=== PATIENT | female | born 1955 | race Hispanic/Latino ===

== ENCOUNTER 2020-08-06 14:55 | Inpatient (IN) | payer OTHER ==
[~2020-08-06] VITALS: Ht 157.5 cm; Wt 82.6 kg
[2020-08-06 15:25] LABS: APPEARANCE,URINE TURBID (CLEAR); BILIRUBIN,URINE SMALL (NEGATIVE); COLOR,URINE BROWN (YELLOW); GLUCOSE, URINE (UA) 100 mg/dL (NEGATIVE); KETONES,URINE 5 mg/dL (NEGATIVE); LEUKOCYTE ESTERASE ,URINE MODERATE (NEGATIVE); NITRATE,URINE POSITIVE (NEGATIVE); OCCULT BLOOD,URINE SMALL (NEGATIVE); PROTEIN,URINE >=300 mg/dL (NEGATIVE)
[2020-08-06 15:27] LABS: BACTERIA,URINE Moderate /HPF (None Seen); RBC,URINE None Seen /HPF (0-1); WBC,URINE Full Field /HPF (0-1)
[2020-08-06 15:28] LABS: SQUAMOUS EPITHELIAL CELL,UR 0-2 /HPF (0-2)
[2020-08-06] MEDS ORDERED: ONDANSETRON 4MG INJ ONE (16:35)
[2020-08-06] MEDS ORDERED: CEFTRIAXONE 1G VIAL ONE (16:35)
[2020-08-06] MEDS ORDERED: MORPHINE 2 MG SYG ONE (16:36)
[2020-08-06] MEDS ORDERED: ACETAMINOPHEN 325 MG TAB ONE (16:36)
[2020-08-06] MEDS ORDERED: 0.9%NACL 1000ML 1,000 ML IV ONE (16:36)
[2020-08-06 16:42] LABS: BASOPHILS % (AUTO) 0.6 % (0.0-5.0); EOSINOPHILS % (AUTO) 0.7 % (0.0-8.0); HEMATOCRIT 37.6 % (36-48); LYMPHOCYTES % (AUTO) 9.7 % (21.0-51.0); MEAN CORPUSCULAR HGB CONC 31.6 g/dL (32.0-36.0); MEAN CORPUSCULAR VOLUME 75.8 fL (79-99); NEUTROPHILS % (AUTO) 84.7 % (40.0-77.0); PLATELET COUNT (AUTO) 215 K/uL (130-400); RED BLOOD CELL COUNT(AUTO) 4.96 MIL/uL (4.00-5.50); RED CELL DISTRIBUTION WIDTH 16.5 % (11.0-15.5); WHITE BLOOD COUNT (AUTO) 8.7 K/uL (4.8-10.8)
[2020-08-06 16:58] LABS: PROTHROMBIN TIME 10.9 SEC (9.6-11.6)
[2020-08-06 16:59] LABS: PARTIAL THROMBOPLASTIN TIME 28.5 SEC (26.3-35.5)
[2020-08-06 17:10] LABS: ALBUMIN 3.4 g/dL (3.5-5.0); BILIRUBIN,TOTAL 0.9 mg/dL (0.2-1.0); POTASSIUM 4.7 mmol/L (3.5-5.1); TOTAL PROTEIN, SERUM 8.6 g/dL (6.0-8.3)
[2020-08-06] MEDS ORDERED: ONDANSETRON 4MG INJ IV PRN (23:30)
[2020-08-06] MEDS: 0.9%NACL 1000ML 1,000 ML IV SCH (23:30)
[2020-08-06] MEDS ORDERED: ACETAMINOPHEN 325 MG TAB PO PRN (23:30)
[2020-08-06] MEDS ORDERED: NITROGLYCERIN 0.4 MG SL TAB SL PRN (23:30)
[2020-08-07] MEDS ORDERED: ACETAMINOPHEN 325 MG TAB ONE (01:34)
[2020-08-07 05:00] VITALS: BP 143/71
[2020-08-07 05:30] LABS: BASOPHILS % (AUTO) 0.4 % (0.0-5.0); EOSINOPHILS % (AUTO) 2.4 % (0.0-8.0); HEMATOCRIT 31.7 % (36-48); LYMPHOCYTES % (AUTO) 17.5 % (21.0-51.0); MEAN CORPUSCULAR HEMOGLOBIN 23.3 pg (27.0-33.0); MEAN CORPUSCULAR HGB CONC 30.6 g/dL (32.0-36.0); MONOCYTES % (AUTO) 6.3 % (3.0-13.0); NEUTROPHILS % (AUTO) 73.1 % (40.0-77.0); PLATELET COUNT (AUTO) 167 K/uL (130-400); RED BLOOD CELL COUNT(AUTO) 4.17 MIL/uL (4.00-5.50); RED CELL DISTRIBUTION WIDTH 16.4 % (11.0-15.5); WHITE BLOOD COUNT (AUTO) 6.7 K/uL (4.8-10.8)
[2020-08-07] MEDS ORDERED: OMEP20TA25 PO (05:37)
[2020-08-07] MEDS ORDERED: SUCR1TAB2 PO (05:37)
[2020-08-07] MEDS ORDERED: NITR100C PO (05:37)
[2020-08-07] MEDS ORDERED: PHEN-847 PO (05:37)
[2020-08-07] MEDS ORDERED: TAMS-1 PO (05:37)
[2020-08-07 05:50] LABS: ALBUMIN 2.6 g/dL (3.5-5.0); BILIRUBIN,TOTAL 0.7 mg/dL (0.2-1.0); CREATININE 0.7 mg/dL (0.5-1.5); MAGNESIUM 1.6 mg/dL (1.80-2.40); POTASSIUM 3.8 mmol/L (3.5-5.1); TOTAL PROTEIN, SERUM 6.9 g/dL (6.0-8.3)
[2020-08-07] MEDS: ACETAMINOPHEN 325 MG TAB PO PRN ×2 (05:57→19:02)
[2020-08-07 07:45] VITALS: BP 125/66
[2020-08-07] MEDS: ENOXAPARIN SODIUM 30 MG/0.3 ML SQ SCH (09:00)
[2020-08-07] MEDS ORDERED: CEFTRIAXONE 1G VIAL IV SCH (09:00)
[2020-08-07] MEDS: FAMOTIDINE 20MG TAB PO SCH ×2 (09:10→20:26)
[2020-08-07] MEDS: 0.9%NACL 1000ML 1,000 ML IV SCH ×2 (09:11→20:27)
[2020-08-07 11:22] VITALS: BP 114/62
[2020-08-07 16:16] VITALS: BP 102/60
[2020-08-07] MEDS: PHENAZOPYRIDINE HCL 200 MG TABLET PO SCH ×2 (16:23→20:25)
[2020-08-07] MEDS: SUCRALFATE 1 GM TABLET PO SCH ×2 (16:23→20:28)
[2020-08-07 20:00] VITALS: BP 136/72
[2020-08-07] MEDS ORDERED: MAGNESIUM 2GM PREMIX 50ML 50 ML IV SCH (20:15)
[2020-08-07] MEDS ORDERED: CACL 1GM SYG IVP SCH (20:15)
[2020-08-07] MEDS ORDERED: HYDROCODONE/ACETAMINOPHEN 5/325 MG TAB ONE (20:17)
[2020-08-07] MEDS ORDERED: 0.9%NACL 1000ML 1,000 ML IV ONE (23:30)
[2020-08-08] VITALS (7 sets, daily range): BP systolic 101–117; BP diastolic 52–61
[2020-08-08] MEDS: 0.9%NACL 1000ML 1,000 ML IV SCH ×3 (04:53→21:33)
[2020-08-08 05:09] LABS: BASOPHILS % (AUTO) 0.4 % (0.0-5.0); EOSINOPHILS % (AUTO) 1.9 % (0.0-8.0); HEMATOCRIT 32.3 % (36-48); LYMPHOCYTES % (AUTO) 5.8 % (21.0-51.0); MEAN CORPUSCULAR HGB CONC 31.6 g/dL (32.0-36.0); NEUTROPHILS % (AUTO) 87.5 % (40.0-77.0); PLATELET COUNT (AUTO) 136 K/uL (130-400); RED BLOOD CELL COUNT(AUTO) 4.25 MIL/uL (4.00-5.50); RED CELL DISTRIBUTION WIDTH 16.7 % (11.0-15.5)
[2020-08-08 05:27] LABS: CREATININE 0.9 mg/dL (0.5-1.5); MAGNESIUM 1.9 mg/dL (1.80-2.40); POTASSIUM 3.8 mmol/L (3.5-5.1)
[2020-08-08] MEDS: TAMSULOSIN HCL 0.4 MG CAP.ER.24H PO SCH (08:37)
[2020-08-08] MEDS: SUCRALFATE 1 GM TABLET PO SCH ×4 (08:37→19:33)
[2020-08-08] MEDS: FAMOTIDINE 20MG TAB PO SCH ×2 (08:37→19:33)
[2020-08-08] MEDS: PHENAZOPYRIDINE HCL 200 MG TABLET PO SCH ×3 (08:37→19:33)
[2020-08-08] MEDS: HYDROCODONE/ACETAMINOPHEN 5/325 MG TAB PO PRN ×2 (08:38→17:54)
[2020-08-08] MEDS: ENOXAPARIN SODIUM 30 MG/0.3 ML SQ SCH (08:39)
[2020-08-08] MEDS ORDERED: MEROPENEM 1 GM VIAL IVP SCH (10:00)
[2020-08-08] MEDS ORDERED: MEROPENEM 1 GM VIAL ONE (19:21)
[2020-08-08] MEDS: MEROPENEM 1 GM VIAL IVP SCH (21:33)
[2020-08-08] MEDS ORDERED: APIXABAN 5 MG TABLET PO ONE (23:53)
[2020-08-09] MEDS ORDERED: LACTULOSE 20 GM/30 ML UDCUP PO PRN
[2020-08-09] MEDS: HYDROCODONE/ACETAMINOPHEN 5/325 MG TAB PO PRN ×2 (01:17→18:31)
[2020-08-09 04:13] VITALS: BP 99/55
[2020-08-09] MEDS: MEROPENEM 1 GM VIAL IVP SCH ×3 (05:11→20:22)
[2020-08-09 05:22] LABS: BASOPHILS % (AUTO) 0.6 % (0.0-5.0); EOSINOPHILS % (AUTO) 4.5 % (0.0-8.0); HEMATOCRIT 29.9 % (36-48); LYMPHOCYTES % (AUTO) 11.4 % (21.0-51.0); MEAN CORPUSCULAR HEMOGLOBIN 23.7 pg (27.0-33.0); MEAN CORPUSCULAR HGB CONC 31.4 g/dL (32.0-36.0); MEAN CORPUSCULAR VOLUME 75.5 fL (79-99); NEUTROPHILS % (AUTO) 76.9 % (40.0-77.0); PLATELET COUNT (AUTO) 130 K/uL (130-400); RED BLOOD CELL COUNT(AUTO) 3.96 MIL/uL (4.00-5.50); RED CELL DISTRIBUTION WIDTH 16.8 % (11.0-15.5); WHITE BLOOD COUNT (AUTO) 5.3 K/uL (4.8-10.8)
[2020-08-09 05:34] LABS: INR 1.15 (0.85-1.15); PROTHROMBIN TIME 12.4 SEC (9.6-11.6)
[2020-08-09 05:35] LABS: PARTIAL THROMBOPLASTIN TIME 34.1 SEC (26.3-35.5)
[2020-08-09 05:38] LABS: CREATININE 0.7 mg/dL (0.5-1.5)
[2020-08-09 08:00] VITALS: BP 108/61
[2020-08-09] MEDS: SUCRALFATE 1 GM TABLET PO SCH ×4 (10:00→20:23)
[2020-08-09] MEDS: PHENAZOPYRIDINE HCL 200 MG TABLET PO SCH ×3 (10:00→20:23)
[2020-08-09] MEDS: TAMSULOSIN HCL 0.4 MG CAP.ER.24H PO SCH (10:01)
[2020-08-09] MEDS: APIXABAN 5 MG TABLET PO SCH ×3 (10:01→20:23)
[2020-08-09] MEDS: FAMOTIDINE 20MG TAB PO SCH ×2 (10:01→20:23)
[2020-08-09] MEDS: 0.9%NACL 1000ML 1,000 ML IV SCH (10:09)
[2020-08-09 12:00] VITALS: BP 104/61
[2020-08-09 16:00] VITALS: BP 107/70
[2020-08-09 20:47] VITALS: BP 134/71
[2020-08-10 00:50] VITALS: BP 94/55
[2020-08-10 04:36] VITALS: BP 114/57
[2020-08-10] MEDS: MEROPENEM 1 GM VIAL IVP SCH ×2 (05:01→14:41)
[2020-08-10] MEDS ORDERED: LACTULOSE 20 GM/30 ML UDCUP PO PRN (08:45)
[2020-08-10] MEDS: PHENAZOPYRIDINE HCL 200 MG TABLET PO SCH ×2 (08:52→14:41)
[2020-08-10] MEDS: TAMSULOSIN HCL 0.4 MG CAP.ER.24H PO SCH (08:52)
[2020-08-10] MEDS: FAMOTIDINE 20MG TAB PO SCH (08:52)
[2020-08-10] MEDS: SUCRALFATE 1 GM TABLET PO SCH ×2 (08:53→14:41)
[2020-08-10] MEDS: APIXABAN 5 MG TABLET PO SCH (08:53)
[2020-08-10 09:29] VITALS: BP 119/62
[2020-08-10] MEDS: HYDROCODONE/ACETAMINOPHEN 5/325 MG TAB PO PRN (10:10)
[2020-08-10 13:52] VITALS: BP 121/70
[2020-08-10] MEDS ORDERED: APIX5TAB PO (14:56)
[2020-08-10 17:10] VITALS: BP 113/65
== END 2020-08-10 19:54 | DRG 690 ==
LOC: EDH 14:55 → EDBD 14:55 → EDHIP 23:13 → 3AH 08-07 05:00
PROVIDERS: ADMIT Hospitalist; ATTEND Hospitalist
PROC: 02HV33Z Insertion of Infusion Device into Superior Vena Cava, Percutaneous Approach (ICD-10-PCS; principal; 2020-08-10)
PROC: B548ZZA Ultrasonography of Superior Vena Cava, Guidance (ICD-10-PCS; 2020-08-10)
DX: N30.00 Acute cystitis without hematuria (principal); R78.81 Bacteremia; Z16.24 Resistance to multiple antibiotics; Z16.12 Extended spectrum beta lactamase (ESBL) resistance; I82.412 Acute embolism and thrombosis of left femoral vein; I82.432 Acute embolism and thrombosis of left popliteal vein; E66.9 Obesity, unspecified; N32.89 Other specified disorders of bladder; M16.0 Bilateral primary osteoarthritis of hip; K80.20 Calculus of gallbladder without cholecystitis without obstruction; K57.90 Diverticulosis of intestine, part unspecified, without perforation or abscess without bleeding; I10 Essential (primary) hypertension; D64.9 Anemia, unspecified; B96.20 Unspecified Escherichia coli [E. coli] as the cause of diseases classified elsewhere; B96.1 Klebsiella pneumoniae [K. pneumoniae] as the cause of diseases classified elsewhere; K43.9 Ventral hernia without obstruction or gangrene; M19.90 Unspecified osteoarthritis, unspecified site; R39.14 Feeling of incomplete bladder emptying; R53.81 Other malaise; R00.0 Tachycardia, unspecified; Z20.822 Contact with and (suspected) exposure to COVID-19; Z68.33 Body mass index [BMI] 33.0-33.9, adult; Z90.710 Acquired absence of both cervix and uterus; Z87.440 Personal history of urinary (tract) infections; Z87.11 Personal history of peptic ulcer disease; Z82.49 Family history of ischemic heart disease and other diseases of the circulatory system
CPT/HCPCS: 36415; 73521; 74176; 80048; 80053; 81001; 82330; 82550; 83605; 83690; 83735; 84484; 85025; 85610; 85730; 87040; 87077; 87088; 87186; 87426; 93005; 93970; 97039; C1894; G0378; J0696; J1650; J2185; J2405; J3475; J3490; J7030; U0003

== ENCOUNTER → 2020-11-03 | Outpatient (CLI) | payer OTHER ==
[~2020-11-03] MED LIST: APIX5TAB PO; OMEP20TA25 PO; PHEN-847 PO; SUCR1TAB2 PO; TAMS-1 PO
== END | disposition home or self-care (01) ==
LOC: RAH 11:15
PROVIDERS: ATTEND Internal Medicine
DX: R19.00 Intra-abdominal and pelvic swelling, mass and lump, unspecified site (principal); Z90.49 Acquired absence of other specified parts of digestive tract; Z90.710 Acquired absence of both cervix and uterus
CPT/HCPCS: 76857